=== PATIENT | female | born 1935 ===

== ENCOUNTER 2019-09-27 19:33 | Inpatient (IN) ==
[2019-09-27] MEDS ORDERED: NS 0.9% 1000 ml BAG 1,000 ML IV ONE (19:54)
[2019-09-27 20:52] LABS: Hematocrit 39 % (35-47); Hemoglobin 13.2 g/dL (12.0-16.0); Mean Corpuscular HGB Conc 34 g/dL (31-36); Mean Corpuscular Hemoglobin 31 pg (27-31); Mean Corpuscular Volume 93 fL (80-97); Platelet Count 142 10^3/uL (150-450); Red Cell Distribution Width 13 % (10-15); White Blood Count 6.9 10^3/uL (3.5-10.8)
[2019-09-27 20:55] LABS: ABS Eosinophils 0.2 10^3/ul (0-0.6); ABS Monocytes 0.5 10^3/ul (0-0.8); Lymphocyte % 13.9 %; Nucleated Red Blood Cells % 0.1
[2019-09-27 21:00] LABS: Activated Partial Thrombo Time 27.4 seconds (26.0-38.0); INR 1.14 (0.82-1.09)
[2019-09-27 21:06] LABS: Albumin 3.5 g/dL (3.2-5.2); Albumin/Globulin Ratio 1.1 (1-3); BUN/Creatinine Ratio 20.7 (8-20); Calcium 9.1 mg/dL (8.6-10.3); EGFR African American 75.2 (>60); EGFR Non-African American 62.2 (>60); Globulin 3.2 g/dL (2-4); Potassium 3.8 mmol/L (3.5-5.0); Total Bilirubin 0.6 mg/dL (0.2-1.0); Total Protein 6.7 g/dL (6.4-8.9)
[2019-09-27 21:07] LABS: Troponin I 0.01 ng/mL (<0.03)
[2019-09-27 21:14] LABS: Rapid Strep Molecular Negative (Negative)
[2019-09-27] MEDS ORDERED: Iohexol 350 (CONTRAST) 500 ML MDV IV ONE (22:44)
[2019-09-27 22:46] LABS: Urine Appearance Cloudy; Urine Bilirubin Negative (Negative); Urine Blood Negative (Negative); Urine Color Yellow; Urine Glucose Negative (Negative); Urine Ketones Negative (Negative); Urine Nitrite Negative (Negative); Urine Protein Negative (Negative); Urine Specific Gravity 1.012 (1.010-1.030); Urine Urobilinogen Negative (Negative)
[2019-09-27] MEDS ORDERED: Albuterol/Ipratropium NEB.SOL (2.5/0.5 MG) 3 ML NEB.SOLN INH ONE (22:49)
[2019-09-27] MEDS ORDERED: Piperacillin/Tazobac ADVAN(*) 3.375 GM in NS 0.9% 100 ml BAG 100 ML IVPB ONE (23:45)
[2019-09-28] MEDS ORDERED: Dextrose 50% Syringe 50 ml 25 GM/50 ML SYRINGE IV PUSH PRN ×2 (00:32→17:41)
[2019-09-28] MEDS: cefTRIAXone 1 gm/50 mL NS BAG 1 GM/50 ML BAG IVPB SCH ×2 (00:49→20:25)
[2019-09-28 01:09] LABS: Influenza A Molecular Negative (Negative); Influenza B Molecular Negative (Negative)
[2019-09-28] MEDS: NS 0.9% 1000 ml BAG 1,000 ML IV SCH ×2 (03:51→16:37)
[2019-09-28] MEDS: Azithromycin 500 mg/250 ml NS 500 MG/250 ML BAG IVPB SCH ×2 (03:51→21:42)
[2019-09-28] MEDS: Heparin 5000 UNITS/ML VIAL(*) 1 ml vial SUBCUT SCH ×3 (04:12→20:25)
[2019-09-28 06:54] LABS: INR 1.21 (0.82-1.09)
[2019-09-28 07:00] LABS: Hematocrit 35 % (35-47); Hemoglobin 11.8 g/dL (12.0-16.0); Mean Corpuscular HGB Conc 34 g/dL (31-36); Mean Corpuscular Hemoglobin 32 pg (27-31); Mean Corpuscular Volume 94 fL (80-97); Mean Platelet Volume 9.6 fL (7.4-10.4); Platelet Count 135 10^3/uL (150-450); Red Blood Count 3.72 10^6 /uL (3.70-4.87); Red Cell Distribution Width 14 % (10-15)
[2019-09-28 07:10] LABS: BUN/Creatinine Ratio 15.9 (8-20); Calcium 8.2 mg/dL (8.6-10.3); EGFR African American 80.6 (>60); EGFR Non-African American 66.6 (>60); Potassium 3.6 mmol/L (3.5-5.0)
[2019-09-28] MEDS: Albuterol HFA INHALER 8 gm MDI INH SCH ×4 (07:48→19:51)
[2019-09-28] MEDS: Mometasone/Formoter 200/5 MDI INH SCH ×2 (07:48→19:51)
[2019-09-28] MEDS: Insulin LISPRO 100 units/ml(*) SUBCUT SCH ×3 (08:20→18:00)
[2019-09-28] MEDS ORDERED: Insulin GLARGINE 100 un/ml (*) 10 ml VIAL SUBCUT SCH (09:00)
[2019-09-28] MEDS: Aspirin EC 81 mg TAB.EC (enteric coated) PO SCH (09:05)
[2019-09-28] MEDS ORDERED: Albuterol/Ipratropium NEB.SOL (2.5/0.5 MG) 3 ML NEB.SOLN INH PRN (09:59)
[2019-09-28 10:16] LABS: C Reactive Protein 103.41 mg/L (<8.01)
[2019-09-28 10:16] LABS: C Reactive Protein 96.48 mg/L (<8.01)
[2019-09-28] MEDS: Nystatin SUSPENSION 100,000 UNITS/ML UDC PO SCH ×2 (16:32→20:25)
[2019-09-28] MEDS ORDERED: Insulin GLARGINE 100 un/ml (*) 10 ml VIAL SUBCUT ONE (17:41)
[2019-09-28] MEDS ORDERED: Insulin LISPRO 100 units/ml(*) SUBCUT ONE ×2 (17:41→21:36)
[2019-09-28] MEDS: Lidocaine PATCH 5% PATCH TRANSDERM SCH (18:20)
[2019-09-29] MEDS: Albuterol HFA INHALER 8 gm MDI INH SCH ×3 (01:00→08:31)
[2019-09-29] MEDS: Heparin 5000 UNITS/ML VIAL(*) 1 ml vial SUBCUT SCH ×3 (05:33→22:16)
[2019-09-29 05:39] LABS: Hematocrit 32 % (35-47); Hemoglobin 10.7 g/dL (12.0-16.0); Mean Corpuscular HGB Conc 33 g/dL (31-36); Mean Corpuscular Hemoglobin 31 pg (27-31); Mean Corpuscular Volume 94 fL (80-97); Mean Platelet Volume 9.5 fL (7.4-10.4); Platelet Count 147 10^3/uL (150-450); Red Blood Count 3.44 10^6 /uL (3.70-4.87); Red Cell Distribution Width 14 % (10-15); White Blood Count 35.8 10^3/uL (3.5-10.8)
[2019-09-29 05:44] LABS: Albumin/Globulin Ratio 1.1 (1-3); BUN/Creatinine Ratio 24.1 (8-20); C Reactive Protein 87.02 mg/L (<8.01); Calcium 8.4 mg/dL (8.6-10.3); EGFR African American 84.1 (>60); EGFR Non-African American 69.5 (>60); Globulin 2.7 g/dL (2-4); Total Bilirubin 0.2 mg/dL (0.2-1.0); Total Protein 5.7 g/dL (6.4-8.9)
[2019-09-29 07:38] LABS: Nucleated Red Blood Cells % 0.1
[2019-09-29] MEDS: Aspirin EC 81 mg TAB.EC (enteric coated) PO SCH (08:03)
[2019-09-29] MEDS: Nystatin SUSPENSION 100,000 UNITS/ML UDC PO SCH ×4 (08:03→20:10)
[2019-09-29] MEDS: Insulin LISPRO 100 units/ml(*) SUBCUT SCH ×5 (08:09→20:09)
[2019-09-29] MEDS: Lidocaine PATCH 5% PATCH TRANSDERM SCH (08:09)
[2019-09-29] MEDS: Mometasone/Formoter 200/5 MDI INH SCH ×2 (08:19→20:08)
[2019-09-29] MEDS ORDERED: Albuterol HFA INHALER 8 gm MDI INH PRN (08:30)
[2019-09-29] MEDS ORDERED: Insulin GLARGINE 100 un/ml (*) 10 ml VIAL SUBCUT SCH (09:00)
[2019-09-29] MEDS: Pantoprazole VIAL 40 MG VIAL IV SCH (11:07)
[2019-09-29] MEDS ORDERED: Insulin GLARGINE 100 un/ml (*) 10 ml VIAL SUBCUT ONE (17:33)
[2019-09-29] MEDS: cefTRIAXone 1 gm/50 mL NS BAG 1 GM/50 ML BAG IVPB SCH (20:11)
[2019-09-29] MEDS: Lidocaine Patch REMOVE PATCH PATCH OFF SCH (20:12)
[2019-09-29] MEDS: Azithromycin 500 mg/250 ml NS 500 MG/250 ML BAG IVPB SCH (22:16)
[2019-09-30] MEDS: Heparin 5000 UNITS/ML VIAL(*) 1 ml vial SUBCUT SCH ×3 (05:12→21:59)
[2019-09-30 06:11] LABS: C Reactive Protein 41.15 mg/L (<8.01); Calcium 8.6 mg/dL (8.6-10.3); EGFR African American 80.6 (>60); EGFR Non-African American 66.6 (>60); Potassium 3.9 mmol/L (3.5-5.0)
[2019-09-30 06:19] LABS: ABS Basophils 0.1 10^3/ul (0-0.2); ABS Lymphocytes 1.5 10^3/ul (1.0-4.8); ABS Monocytes 0.3 10^3/ul (0-0.8); Eosinophil % 0.1 %; Hematocrit 33 % (35-47); Hemoglobin 10.6 g/dL (12.0-16.0); Lymphocyte % 3.6 %; Mean Corpuscular HGB Conc 33 g/dL (31-36); Mean Corpuscular Hemoglobin 31 pg (27-31); Mean Corpuscular Volume 94 fL (80-97); Mean Platelet Volume 9.4 fL (7.4-10.4); Platelet Count 157 10^3/uL (150-450); Red Blood Count 3.48 10^6 /uL (3.70-4.87); Red Cell Distribution Width 14 % (10-15); White Blood Count 41.9 10^3/uL (3.5-10.8)
[2019-09-30 07:55] LABS: Polychromasia 1+
[2019-09-30] MEDS: Pantoprazole VIAL 40 MG VIAL IV SCH (08:08)
[2019-09-30] MEDS: Lidocaine PATCH 5% PATCH TRANSDERM SCH (08:08)
[2019-09-30] MEDS: Nystatin SUSPENSION 100,000 UNITS/ML UDC PO SCH ×4 (08:08→20:19)
[2019-09-30] MEDS: Aspirin EC 81 mg TAB.EC (enteric coated) PO SCH (08:10)
[2019-09-30] MEDS: Mometasone/Formoter 200/5 MDI INH SCH ×2 (08:18→19:45)
[2019-09-30] MEDS: Insulin LISPRO 100 units/ml(*) SUBCUT SCH ×4 (08:19→20:17)
[2019-09-30] MEDS: Insulin GLARGINE 100 un/ml (*) 10 ml VIAL SUBCUT SCH (08:46)
[2019-09-30] MEDS: Lidocaine Patch REMOVE PATCH PATCH OFF SCH ×2 (20:20→20:25)
[2019-09-30] MEDS: cefTRIAXone 1 gm/50 mL NS BAG 1 GM/50 ML BAG IVPB SCH (20:30)
[2019-09-30] MEDS: Azithromycin 500 mg/250 ml NS 500 MG/250 ML BAG IVPB SCH (21:59)
[2019-10-01] MEDS: Heparin 5000 UNITS/ML VIAL(*) 1 ml vial SUBCUT SCH ×2 (05:39→13:58)
[2019-10-01 06:38] LABS: Hematocrit 32 % (35-47); Hemoglobin 10.9 g/dL (12.0-16.0); Mean Corpuscular HGB Conc 34 g/dL (31-36); Mean Corpuscular Hemoglobin 31 pg (27-31); Mean Corpuscular Volume 93 fL (80-97); Platelet Count 155 10^3/uL (150-450); Red Blood Count 3.48 10^6 /uL (3.70-4.87); Red Cell Distribution Width 14 % (10-15); White Blood Count 33.9 10^3/uL (3.5-10.8)
[2019-10-01 06:48] LABS: BUN/Creatinine Ratio 22.5 (8-20); Calcium 8.3 mg/dL (8.6-10.3); EGFR African American 82.9 (>60); EGFR Non-African American 68.5 (>60); Potassium 3.9 mmol/L (3.5-5.0)
[2019-10-01 07:21] LABS: ABS Basophils 0.1 10^3/ul (0-0.2); ABS Eosinophils 0.2 10^3/ul (0-0.6); ABS Lymphocytes 1.6 10^3/ul (1.0-4.8); ABS Monocytes 0.4 10^3/ul (0-0.8); ABS Nucleated RBC 0.1 10^3/ul; Eosinophil % 0.5 %; Lymphocyte % 4.8 %; Nucleated Red Blood Cells % 0.2
[2019-10-01 07:23] LABS: Polychromasia 1+
[2019-10-01] MEDS: Mometasone/Formoter 200/5 MDI INH SCH (07:48)
[2019-10-01] MEDS: Insulin LISPRO 100 units/ml(*) SUBCUT SCH ×2 (07:55→12:46)
[2019-10-01] MEDS: Lidocaine PATCH 5% PATCH TRANSDERM SCH (08:13)
[2019-10-01] MEDS: Aspirin EC 81 mg TAB.EC (enteric coated) PO SCH (08:14)
[2019-10-01] MEDS: Nystatin SUSPENSION 100,000 UNITS/ML UDC PO SCH ×2 (08:14→13:56)
[2019-10-01] MEDS: Pantoprazole VIAL 40 MG VIAL IV SCH (08:14)
[2019-10-01] MEDS: Insulin GLARGINE 100 un/ml (*) 10 ml VIAL SUBCUT SCH (08:16)
[2019-10-01 11:24] VITALS: BP 124/54
== END 2019-10-01 18:00 | disposition home or self-care (01) | DRG 194 ==
LOC: ED 19:33 → MED 09-28 00:24
PROVIDERS: ADMIT Nurse Practitioner Family; ATTEND Internal Medicine